=== PATIENT | female | born 1935 | race Caucasian/White ===

== ENCOUNTER 2017-11-08 23:49 | Emergency (ER) | payer SELFPAY ==
[2017-11-09 02:01] VITALS: BP 147/84
== END 2017-11-09 02:01 | disposition home or self-care (01) ==
LOC: ED 23:49
DX: J98.01 Acute bronchospasm (principal); F32.9 Major depressive disorder, single episode, unspecified; L82.1 Other seborrheic keratosis; I10 Essential (primary) hypertension
CPT/HCPCS: J2930; J7613; J7644

== ENCOUNTER 2018-04-26 17:43 | Emergency (ER) | payer SELFPAY ==
[~2018-04-26] VITALS: Ht 139.7 cm; Wt 64.4 kg
[2018-04-26 17:44] VITALS: BP 162/94; Ht 139.7 cm; Wt 64.4 kg
== END 2018-04-26 19:24 | disposition home or self-care (01) ==
LOC: ED 17:43
DX: H00.014 Hordeolum externum left upper eyelid (principal)

== ENCOUNTER 2019-01-15 13:01 | Emergency (ER) | payer SELFPAY ==
[~2019-01-15] VITALS: Ht 149.9 cm; Wt 61.2 kg
[2019-01-15 13:07] VITALS: Ht 149.9 cm; Wt 61.2 kg
[2019-01-15 15:55] VITALS: BP 142/75
== END 2019-01-15 15:55 | disposition home or self-care (01) ==
LOC: ED 13:01
DX: J20.9 Acute bronchitis, unspecified (principal); I10 Essential (primary) hypertension; F32.9 Major depressive disorder, single episode, unspecified
CPT/HCPCS: 87804

== ENCOUNTER 2019-05-06 18:54 | Inpatient (IN) | payer MEDICAID ==
[~2019-05-06] VITALS: Ht 152.4 cm; Wt 63.2 kg
--- NOTE | 2019-05-06 19:41 | NUR ---
PT SENT TO LOBBY IN STABLE CONDITION. PT AWAITING ROOM PLACEMENT.
--- NOTE | 2019-05-06 20:18 | NUR ---
PT C/O INTERMITTENT FEVERS, BODY ACHES, SALAS AND NAUSEA X3 DAYS. PT DESCRIBES SALAS 6/10 THROBBING PAIN, NON-RADIATING. FAMILY STS THAT PT WILL NOT EAT, AND IS NOT DRINKING FLUIDS. PT REPORTS NO OTHER COMPLAINTS. PT DENIES DYSURIA, COUGH, VOMITING, AND DIARRHEA. NAD NOTED AT THIS TIME. MD AT BEDSIDE FOR MSE.
[2019-05-06 20:55] LABS: BASOPHIL % 0.2 % (0-2); PLATELET COUNT 180 x10^3mcL (130-400); RED CELL DISTRIBUTION WIDTH 14.8 % (11.5-14.5)
--- NOTE | 2019-05-06 20:58 | NUR ---
PT LAYING IN POSITION OF COMFORT, AWAKE AND ALERT. VSS, RESPS E/U, NAD NOTED AT THIS TIME. CALL LIGHT W/IN REACH, FAMILY AT BEDSIDE. AWAITING PENDING LABS. WILL CONTINUE TO MONITOR.
[2019-05-06 21:04] LABS: CALCIUM 8.6 mg/dL (8.5-10.1); CARBON DIOXIDE 25.7 mmol/L (21-32); CHLORIDE SERUM 101 mmol/L (98-107); CREATININE SERUM 0.9 mg/dL (0.6-1.0); GLUCOSE SERUM 97 mg/dL (74-106); POTASSIUM SERUM 3.7 mmol/L (3.5-5.1); SODIUM SERUM 136 mmol/L (136-145)
[2019-05-06 21:09] LABS: ALBUMIN 3.5 g/dL (3.4-5.0); ALKALINE PHOSPHATASE 108 U/L (46-116); ALT/SGPT 47 U/L (14-59); AST/SGOT 36 U/L (15-37); BILIRUBIN TOTAL 0.7 mg/dL (0.20-1.00); TOTAL PROTEIN, SERUM 7.4 g/dL (6.4-8.2)
[2019-05-06 21:54] LABS: UA SPECIFIC GRAVITY <=1.005 (1.005-1.035); microscopic required? YES; urine erythrocyte 1+ (NEGATIVE)
--- NOTE | 2019-05-06 21:55 | NUR ---
PT AWAKE AND ALERT, LAYING IN POSITION OF COMFORT. 2 BED RAILS UP, BED IN LOW AND LOCKED POSITION. FAMILY AT BEDSIDE, CALL LIGHT W/IN REACH. NAD NOTED AT THIS TIME. AWAITING RESULTS.
--- NOTE | 2019-05-06 22:47 | NUR ---
PT AWAKE AND ALERT, LAYING IN POSITION OF COMFORT. 2 BED RAILS UP, BED IN LOW AND LOCKED POSITION. FAMILY AT BEDSIDE. CALL LIGHT W/IN REACH. ABX STARTED PER MD ORDER. VSS, RESPS E/U, NAD NOTED.
[2019-05-06] MEDS ORDERED: CAP25 PO (23:32)
--- NOTE | 2019-05-06 23:36 | NUR ---
PT REPORTS UNK MEDICATION THAT SHE GETS IN [place]. BROMAZEPAM 3MG AT NIGHT TIME
--- NOTE | 2019-05-06 23:39 | NUR ---
REPORT GIVEN TO MARGARET ZARATE
[2019-05-07 00:20] LABS: MAGNESIUM 2.1 mg/dL (1.8-2.4); PHOSPHOROUS 2.4 mg/dL (2.5-4.9)
[2019-05-07 00:21] LABS: CHOLESTEROL/HDL RATIO 4.9
[2019-05-07 00:26] LABS: T3 TOTAL 1.06 ng/mL
[2019-05-07 00:30] VITALS: BP 144/62
[2019-05-07 01:05] LABS: FREE T4 1.13 ng/dL (0.76-1.46); T4(THYROXINE) 9.4 ug/dL (4.7-13.3)
[2019-05-07 01:09] VITALS: Ht 152.4 cm; Wt 63.2 kg
--- NOTE | 2019-05-07 01:09 | NUR ---
RECEIVED PT VIA BED, ACCOMPANIED BY NURSE AND FAMILY MEMEBERS. PT AAOX4,KINYARWANDA SPEAKING ONLY, DENIES H/A OR DIZZINESS. DENIES CP/PRESSURE AT THIS TIME. PALPABLE PULSES TO BLE AND BUE, NO EDEMA NOTED. LUNG SOUNDS CTA, BREATHING EVEN AND UNLABORED, NO SIGNS OF RESP DISTRESS NOTED. ABD SOFT AND ROUND, ACTIVE BOWEL SOUNDS X4 ACOSTA, DENIES PAIN N/V AT THIS TIME. VOIDS FREELY, BRP, AMBULATORY. SKIN INTACT. IV TO RAC INFUSING WELL, SITE FREE FROM REDNESS AND SWELLING. BED AT LOWEST SETTING, CALL LIGHT WITHING REACH. REPORT GIVEN TO PRIMARY NURSE.
--- NOTE | 2019-05-07 01:34 | NUR ---
VERIFIED ORDERS OF 1L NS @ 100ML/HR. WANTED BOLUS X1 L.WILL CARRY OUT.
--- NOTE | 2019-05-07 04:43 | NUR ---
PT SLEPT WELL AFTER ADMISSION.AFEBRILE,DENIES ANY PAIN AT THIS TIME.NO ASE NOTED FROM IV ATB GIVEN IN ER.WILL CONTINUE TO MONITOR.
[2019-05-07 06:01] VITALS: BP 127/52
[2019-05-07 06:32] LABS: BASOPHIL % 0.4 % (0-2); PLATELET COUNT 166 x10^3mcL (130-400); RED CELL DISTRIBUTION WIDTH 14.5 % (11.5-14.5)
[2019-05-07 06:40] LABS: CALCIUM 8.1 mg/dL (8.5-10.1); CARBON DIOXIDE 26.1 mmol/L (21-32); CHLORIDE SERUM 109 mmol/L (98-107); CREATININE SERUM 0.7 mg/dL (0.6-1.0); GLUCOSE SERUM 85 mg/dL (74-106); MAGNESIUM 2.1 mg/dL (1.8-2.4); PHOSPHOROUS 2.7 mg/dL (2.5-4.9); POTASSIUM SERUM 3.6 mmol/L (3.5-5.1); SODIUM SERUM 142 mmol/L (136-145)
--- NOTE | 2019-05-07 07:51 | NUR ---
PT SEEN, SITTING UP AT EDGE OF BED AND EATING BREAKFAST, ALERT AND ORIENTED X 4 WITH MOSTLY ICELANDIC SPEAKING, MUCKLESHOOT, DENIES HEADACHE OR DIZZINESS, BREATHING EVEN AND UNLABORED, LUNG SOUNDS CLEAR, ON ROOM AIR WITH NO RESP DISTRESS NOTED, ON TELE#11 NSR, DENIES CHEST PAIN, IVF INFUSING WELL, PULSES PALPABLE, NO EDEMA NOTED, ABLE TO MOVE JOSE UPPER EXT AND JOSE LOWER EXT, ABD SOFT WITH ACTIVE BS, NO BM AT THIS TIME, SKIN WARM, DRY AND INTACT, FALL PRECAUTION IN PLACE, CLUTTER FREE ENVIRONMENT MAINTAINED, WILL KEEP TO MONITOR.
--- NOTE | 2019-05-07 08:40 | NUR ---
RECIEVED REPORT FROM TESSA STEVENS TO ASSUME ALL CARES. ALL QUESTIONS AND CONCERNS ADDRESSED. WILL CONTINUE TO MONITOR.
[2019-05-07 09:02] VITALS: BP 140/64
--- NOTE | 2019-05-07 10:31 | NUR ---
Discount pharmacy card and list to low cost medical clinics given to patient by Hamzah Wilde.
--- NOTE | 2019-05-07 12:29 | NUR ---
PATIENT LAYING IN BED WATCHING TELEVISION. RESPIRATIONS ARE EQUAL AND SYMMETRICAL ON ROOM AIR. NO SIGNS OF DISTRESS. IVF INFUSING TO RAC IV WITH NO SIGNS OF INFILTRATION. PATIENT REQUESTING TO WASH UP WHEN FAMILY ARRIVES. BED TO LOWEST POSITION, SIDE RAILS UP X2, CALL LIGHT WITHIN REACH. WILL CONTINUE TO MONITOR.
--- NOTE | 2019-05-07 13:44 | NUR ---
IV TO RAC IS LEAKING. IV FLUSHED WITH NO SIGNS OF INFILTRATION NOTED. DRESSING CHANGED AT THIS TIME WITH DATE, TIME AND INTITIALS. PATIENT TOLERATED WELL. WILL CONTINUE TO MONITOR.
--- NOTE | 2019-05-07 15:17 | NUR ---
IV TO RAC REMAINS LEAKING AND PATIENT IS NOW COMPLAINING OF PAIN AT THE SITE. NEW 22 G IV INSERTED TO RIGHT WRIST, FLUSHES WELL AND BLOOD RETURN NOTED, NO SIGNS OF INFILTRATION. IV TO RAC THEN REMOVED WITH CATH TIP INTACT. PATIENT TOLERATED PROCEDURE WELL. NEW IV SITE DATES, TIMED AND INTITIALED. WILL CONTINUE TO MONITOR.
[2019-05-07 16:38] VITALS: BP 151/63
--- NOTE | 2019-05-07 17:36 | NUR ---
PATIENT CURRENTLY SITTING UP IN BED EATING DINNER INDEPENDENTLY. NO SIGNS OF DISTRESS. FAMILY AT BEDSIDE AND SUPPORTIVE IN CARE. BED TO LOWEST POSITION, SIDE RAILS UP X2 AND CALL LIGHT WITHIN REACH. WILL CONTINUE TO MONITOR.
--- NOTE | 2019-05-07 19:30 | NUR ---
RECEIVED PT IN BED RESTING WITH FAMILY AT BEDSIDE.LUNG SOUND CTA. NO ACUTE RESPIRATORY DISTRESS NOTED. DENIES ANY PAIN AT THIS TIME.IV SITE PATENT AND INTACT. BED IN LOWEST POSITION,CALL LIGHT WITHIN REACH. WILL CONTINUE TO MONITOR.
[2019-05-07 21:06] VITALS: BP 168/76
--- NOTE | 2019-05-07 23:11 | NUR ---
ASSISTED PT TO THE BATHROOM AND BACK TO BED. NO DISTRESS NOTED. WILL CONTINUE TO MONITOR.
--- NOTE | 2019-05-08 05:30 | NUR ---
PT APPEARS TO BE SLEEPING. NO SOB NOTED. DENIES PAIN AT THIS TIME. BED IN LOWEST POSITION,CALL LIGHT WITHIN REACH. WILL CONTINUE TO MONITOR.
[2019-05-08 05:55] VITALS: BP 121/61
[2019-05-08 06:48] LABS: BASOPHIL % 0.3 % (0-2); PLATELET COUNT 194 x10^3mcL (130-400)
[2019-05-08 07:11] LABS: CALCIUM 8.3 mg/dL (8.5-10.1); CARBON DIOXIDE 25.9 mmol/L (21-32); CHLORIDE SERUM 107 mmol/L (98-107); CREATININE SERUM 0.6 mg/dL (0.6-1.0); GLUCOSE SERUM 94 mg/dL (74-106); POTASSIUM SERUM 3.7 mmol/L (3.5-5.1); SODIUM SERUM 142 mmol/L (136-145)
--- NOTE | 2019-05-08 07:19 | NUR ---
CARE ENDORSED TO DAY NURSE
[2019-05-08 07:28] LABS: RED CELL DISTRIBUTION WIDTH 14.6 % (11.5-14.5)
--- NOTE | 2019-05-08 07:30 | NUR ---
RECEIVED PATIENT A/A/OX4; CLEAR KHMER SPEAKING. DENIED PAIN. TELE#11, SR; HR 74. DENIED CHEST PAIN. NO RESP DISTRESS ON RA. FINISHED 80% OF REGULAR DIET BREAKFAST. NO N/V. HAD BM YESTERDAY. IVF OF NS 80CC/HR, IV SITE TO RW INTACT. VOID VIA BRP. DENIED DYSURIA. AMBULATORY. CALL LIGHT IN REACH.
[2019-05-08] MEDS ORDERED: LEVOFLOXACIN500 M1 PO (09:12)
[2019-05-08 09:41] VITALS: BP 141/66
[2019-05-08 12:22] VITALS: BP 141/66
--- NOTE | 2019-05-08 12:54 | NUR ---
CONDITION STABLE. DENIED PAIN; DENIED DYSURIA. D/C TO HOME PER ORDER. 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 IV D/C'D. WOULD LEAVE AFTER LUNCH.
== END 2019-05-08 14:19 | disposition home or self-care (01) | DRG 871 ==
LOC: ED 18:54 → DU 23:19
PROVIDERS: Emergency Medicine; Internal Medicine; ADMIT General Practice
DX: A41.9 Sepsis, unspecified organism (principal); G93.41 Metabolic encephalopathy; N39.0 Urinary tract infection, site not specified; I10 Essential (primary) hypertension; F32.9 Major depressive disorder, single episode, unspecified; E83.39 Other disorders of phosphorus metabolism; E78.5 Hyperlipidemia, unspecified
CPT/HCPCS: 83880; 84439; G0378; J0696; J7030; Q0092